=== PATIENT | male | born 1995 | race Two or more races ===

== ENCOUNTER 2024-12-26 08:44 | Emergency (ER) | payer MEDICAID, SELFPAY ==
[2024-12-26 08:45] VITALS: BMI 20.9
[2024-12-26 09:02] VITALS: BP 138/73; PULSE 86; RESP 17; TEMP 36.6; O2SAT 98
--- NOTE | 2024-12-26 09:20 | PD.EDUPEX ---
Upper Extremity Injury RME/HPI General Chief Complaint: Extremity Injury, Upper Stated Complaint: RIGHT FOREARM ABCESS Time Seen by Provider: 12/26/24 08:49 Arrival date/time: 12/26/24 08:44 29-year-old male who is homeless and admits to methamphetamine abuse presents emergency department today for complaint of abscess to the right forearm ongoing for the last few days Limitations: no limitations Related Data Previous Rx's ?Medication ?Instructions ?Recorded ibuprofen 600 mg tablet 600 mg PO Q8H PRN fever or pain 10/04/23 #20 tabs clindamycin HCl 150 mg capsule 450 mg (3 x 150 mg) PO TID 7 days 12/26/24 #63 caps ibuprofen 600 mg tablet 600 mg PO Q6H #30 tabs 12/26/24 mupirocin 2 % topical ointment 1 applic topical TID 10 days #22 12/26/24 grams Allergies Allergy/AdvReac Type Severity Reaction Status Date / Time No Known Allergies Allergy Verified 12/26/24 08:47 Review of Systems Review of Systems Systems Reviewed: All systems reviewed, normal except as documented Constitutional Constitutional: Reports system reviewed and no additional complaints, except as documented, Denies fever(s) and Denies headache(s) Eyes Eyes: Reports system reviewed and no additional complaints, except as documented and Denies blurry vision ENT Ears, Nose, Mouth, and Throat: Reports system reviewed and no additional complaints, except as documented, Denies headache(s), Denies nasal congestion and Denies nasal discharge Cardiovascular Cardiovascular: Reports system reviewed and no additional complaints, except as documented, Denies chest pain and Denies dyspnea Respiratory Respiratory: Reports system reviewed and no additional complaints, except as documented, Denies chest congestion, Denies cough and Denies dyspnea Gastrointestinal Gastrointestinal: Reports system reviewed and no additional complaints, except as documented and Denies abdominal pain Integumentary/Breasts Skin/Breast: Reports system reviewed and no additional complaints, except as documented, Denies rash and Reports other (Abscess right wrist) Neurologic Neurologic: Reports system reviewed and no additional complaints, except as documented, Reports as per HPI and Denies headache(s) Past Medical History Past Medical History CARDIAC: Negative Congestive Heart Failure RESPIRATORY: Negative Chronic Obstructive Pulmonary Disease (COPD) GENITOURINARY: Negative Renal Disease ENDOCRINE: Negative Diabetes Mellitus Type 1 or Diabetes Mellitus Type 2 Social History SMOKING STATUS: Current every day smoker SUBSTANCE USE: methamphetamine ED Exam General Limitations: Present no limitations General appearance: Present alert and in no apparent distress Head Head exam: Present atraumatic Eye Eye exam: Present normal appearance, PERRL and EOMI ENT ENT exam: Present normal exam, normal oropharynx and mucous membranes moist Neck Neck exam: Present normal inspection, full ROM and trachea midline Chest Chest inspection: Present normal inspection and symmetric chest wall rise Respiratory Respiratory exam: Present normal lung sounds bilaterally Cardiovascular Cardiovascular exam: Present regular rate, normal rhythm and normal heart sounds Abdominal Exam Abdominal exam: Present soft and normal bowel sounds Extremities Exam Extremities exam: Present normal inspection and full ROM Back Exam Back exam: Present normal inspection and full ROM Neurological Exam Neurological exam: Present alert, oriented X3, CN II-XII intact, normal gait and reflexes normal; Absent motor sensory deficit Psychiatric Psychiatric exam: Present normal affect and normal mood Skin Skin exam: Present warm, dry and other (Abscess right wrist); Absent rash Course Quality Measures none Orders Category Date Time Status Set Up Suture Tray STAT Care 12/26/24 09:09 Completed Wound Care NOW Care 12/26/24 09:09 Completed Lidocaine 1% 20 ml [Xylocaine 1% 20 ML] Med 12/26/24 09:09 Discontinued 2.1 ml INFL X1 ONE Lidocaine 1% 20 ml [Xylocaine 1% 20 ML] Med 12/26/24 09:09 Discontinued 20 ml INFL X1 ONE TET,DIP/PERT AC (Adult)-Tdap [Boostrix Adult (Tdap) Med 12/26/24 09:09 Discontinued Vacc] 0.5 ml IMI .ONCE ONE cefTRIAXone [Rocephin] Med 12/26/24 09:09 Discontinued 1,000 mg IM X1 ONE Vital Signs Vital signs: Vital Signs Temperature 97.9 F 12/26/24 09:02 Pulse Rate 86 12/26/24 09:02 Respiratory Rate 17 12/26/24 09:02 Blood Pressure 138/73 H 12/26/24 09:02 Pulse Oximetry (%) 98 12/26/24 09:02 Oxygen Delivery Method Room Air 12/26/24 09:02 O2 saturation 98% room air within normal limits Procedures -ED Abscess I/D Site: upper extremity Side (if applicable): right Local Anesthetic: lidocaine 1% Amount of anesthesia used (mL): 5 Technique: incised with #11 blade Amount of fluid expressed (mL): 10 Irrigation: Yes Packing used?: none Complications: pain Extremity Injury MDM Narrative MDM Narrative:: 29-year-old male who is homeless and admits to methamphetamine abuse presents emergency department today for complaint of abscess to the right forearm ongoing for the last few days On exam patient has abscess dorsal aspect of the right wrist I&D performed patient tolerated well Copious amounts of blood and pus was removed Patient given injection of Rocephin here as well as Tdap Patient discharged home on antibiotics Explained to the patient if symptoms persist or worsen he will need to return for reevaluation Patient data External records reviewed:: [facility] previous records Clinical information provided by:: patient Social determinants that could affect healthcare access:: substance use Patient has the following chronic illnesses:: See history How is presenting disease/condition affected by chronic disease/condition?: caused by Evaluation data The following diagnostics were reviewed and interpreted by me:: other (specify) (N/A) Lab and/or radiology exams considered but not ordered:: Consider not ordered Interpretation Summary: N/A Medications / Prescriptions Medications or Prescriptions considered but not ordered:: Given Medication administrations:: Medication Administration History Discontinued Medications Ceftriaxone Sodium (Ceftriaxone Sod Inj 1,000 Mg Vial) 1,000 mg IM X1 ONE Stop: 12/26/24 09:10 Last Admin: 12/26/24 09:25 Dose: 1,000 mg Documented By: FENG Diphtheria/Tetanus/Acell Pertussis (Diphth,Pertuss(Acell),Tet Vac 0.5 Ml Syr- Adult) 0.5 ml IMi .ONCE ONE Stop: 12/26/24 09:10 Last Admin: 12/26/24 09:27 Dose: 0.5 ml Documented By: FENG Lidocaine HCl (Lidocaine Hcl 1% 20 Ml Vial) 2.1 ml INFL X1 ONE Stop: 12/26/24 09:10 Last Admin: 12/26/24 09:26 Dose: 2.1 ml Documented By: FENG Lidocaine HCl (Lidocaine Hcl 1% 20 Ml Vial) 20 ml INFL X1 ONE Stop: 12/26/24 09:10 Last Admin: 12/26/24 09:26 Dose: 20 ml Documented By: FENG Comments: admin by provider Given Consultations Consultation(s) initiated? (list below): No Diagnosis Upper Extremity Injury Differential Diagnosis: other Most likely diagnosis given after review of the tests above:: Abscess Admission Indicated Admission indicated?: not indicated Admission Request Was there a request for admission?: No Disposition Plan Disposition Plan: Discharge Discharge Attestation Discharge Attestation: The patient and all family members were given an opportunity to ask questions and understood the discharge instructions. Discharge instructions specifically effects, indications for sooner follow up or return to the emergency department, and the expected course of current diagnosis. Patient condition: Stable Discharge Plan Plan Patient Disposition: HOME (Self Care) Discharge Disposition comment: Stable Prescriptions/Referrals Prescriptions/Med Rec: New clindamycin HCl 150 mg capsule 450 mg PO TID 7 Days Qty: 63 0RF mupirocin 2 % ointment 1 applic topical TID 10 Days Qty: 22 0RF ibuprofen 600 mg tablet 600 mg PO Q6H Qty: 30 0RF No Action ibuprofen 600 mg tablet 600 mg PO Q8H PRN (Reason: fever or pain) Qty: 20 0RF Problem List Clinical Impression: Abscess of forearm, right Patient/Caregiver Discharge Instructions Education Materials: ED Abscess, Incision And Drainage Additional Instructions: Please follow up with your primary care doctor in the next 24-48hrs for any worsening symptoms return here immediately Print Language: Pashto Stand Alone Forms: [facility] Award Info., Patient Portal Info Letter PA/MOTHER BABY RN Supervising Physician PA/MOTHER BABY RN Supervising Physician: Dr. flower
[2024-12-26] MEDS: cefTRIAXone SOD INJ 1,000 MG VIAL 1000 MG IM (09:25)
[2024-12-26] MEDS: LIDOCAINE HCL 1% 20 ML VIAL 2.1 ML INFL (09:26)
[2024-12-26] MEDS: LIDOCAINE HCL 1% 20 ML VIAL INFL (09:26)
[2024-12-26] MEDS: DIPHTH,PERTUSS(ACELL),TET VAC 0.5 ML SYR- ADULT IMi (09:27)
== END 2024-12-26 09:31 | disposition home or self-care (01) ==
LOC: SERX 09:27
PROVIDERS: Emergency Provider Emergency Medicine; PCP Family Medicine
DX: L02.413 Cutaneous abscess of right upper limb (principal); Z23 Encounter for immunization
CPT/HCPCS: 10060; 90471; 90715; 96372; 99283; J0696; J3490